=== PATIENT | female | born 1985 | race Two or more races ===

== ENCOUNTER 2017-02-13 14:22 | Outpatient (CLI) | payer OTHER ==
[~2017-02-13 14:22] MED LIST: DOCU-30 PO; IBUP-1222 PO; OXYC-302 PO; PREN1TAB60 PO
[2017-02-13] MEDS ORDERED: LACTATED RINGERS 1,000 ML IVBOLUS ONE (15:00)
[2017-02-13] MEDS ORDERED: D5%-LACTATED RINGERS 1,000 ML IV SCH (15:00)
[2017-02-13 15:14] LABS: ASPARTATE AMINO TRANSFERASE 15 U/L (15-37); BLOOD UREA NITROGEN 7 mg/dL (7-18)
[2017-02-13 17:53] LABS: PATH.CAST-FLAG NOT PRESENT; SPERM-FLAG NOT PRESENT; SRC-FLAG NOT PRESENT; XTAL-FLAG NOT PRESENT; YLC-FLAG NOT PRESENT
[2017-02-13 19:19] VITALS: BP 101/60
[2017-02-13] MEDS ORDERED: OXYcodone/APAP 5/325MG TABLET PO ONE (20:30)
[2017-02-13] MEDS ORDERED: OXYcodone/APAP 5/325MG TABLET ONE (20:36)
== END 2017-02-13 21:00 | disposition home or self-care (01) ==
LOC: LDOP 14:22
PROVIDERS: ATTEND Obstetrics & Gynecology
DX: O26.893 Other specified pregnancy related conditions, third trimester (principal); O21.9 Vomiting of pregnancy, unspecified; R10.9 Unspecified abdominal pain; Z3A.32 32 weeks gestation of pregnancy
CPT/HCPCS: 36415; 59025; 80053; 81001; 82731; 85025; 87086; 96360; 96361; 99201; J7120; G0463; J7121